=== PATIENT | female | born 1990 | race Caucasian/White ===

== ENCOUNTER 2017-03-01 20:18 | Emergency (ER) | payer SELFPAY ==
[~2017-03-01] VITALS: Ht 172.7 cm; Wt 93.8 kg
[~2017-03-01 20:18] MED LIST: AMOX875T PO; CARI350T28 PO; IBUP-1277 PO; OXYC-609 PO; RTL20 PO
[2017-03-01 20:26] VITALS: TEMP 36.7; Ht 172.7 cm; Wt 93.8 kg
[2017-03-01] MEDS ORDERED: PROMETHAZINE HCL INJ 25 MG/ML 1 ML VIAL IM STA (20:43)
[2017-03-01] MEDS ORDERED: KETOROLAC TROMETHAMINE 60 MG/2 ML VIAL IM STA (20:43)
[2017-03-01] MEDS ORDERED: HYDROmorphone INJ 2 MG/ML SYR/VIAL IM STA (20:43)
--- NOTE | 2017-03-01 20:50 | EMERGENCY ROOM VISIT NOTE ---
History Report prepared by Caty: Luis Felipe Whaley Under the Supervision of: Dr. Matt Stanley M.D. First contact with patient: 20:37 Chief Complaint: NECK PAIN Stated Complaint: SEVERE ACUTE NECK,SHOULDER,BACK PAIN History of Present Illness The patient is a 26 year old female who presents to the Emergency Room with complaints of persistent neck pain that started 3 days ago. The patient has been stretching and applying heat and ice, but the discomfort has only been getting worse. The discomfort has started to radiate down her spine and to her shoulders and she complains of tingling in her fingers. Moving her head significantly worsens the discomfort. She has been taking Ibuprofen for the discomfort and took a muscle relaxer 10 hours ago. She denies any trauma or headache at this time. Source of History: patient Onset: 3 days ago Position: neck Timing: other (persistent) Modifying Factors (Worsening): movement (of the head) Associated Symptoms: + headache Note: Other associated symptoms: tingling in her fingers, radiation down spine and to shoulders Denies: trauma Review of Systems See HPI for pertinent positives & negatives. A total of 10 systems reviewed and were otherwise negative. Past Medical & Surgical Medical Problems: (1) Asthma (2) Bronchitis (3) Bronchitis (4) Diarrhea (5) Fistulation of perianal abscess (6) Hemorrhoids (7) Irritable bowel syndrome (IBS) (8) Miscarriage (9) Perianal abscess (10) PNA (pneumonia) (11) Pneumonia (12) Pre-eclampsia, mild, third trimester (13) Tachycardia (14) Twin , antepartum Surgical Problems: (1) History of appendectomy (2) S/P appendectomy Family History FH: gallbladder disease FH: heart disease Hypertension Kidney disease Kidney stones Liver disease Social History Smoking Status: Former Smoker Alcohol Use: occasionally Drug Use: none Marital Status: Housing Status: lives with significant other Occupation Status: employed Current/Historical Medications Scheduled Pregabalin (Lyrica), 300 MG PO HS Scheduled PRN Carisoprodol (Soma), 350 MG PO TID PRN for Menstrual Cramps Oxycodone/Acetaminophen 5MG/325MG (Percocet 5MG/325MG), 1-2 TAB PO Q4H PRN for Pain Allergies Coded Allergies: Amitriptyline (Verified Allergy, Severe, SUICIDAL THOUGHTS/INSOMNIA, ) Morphine (Verified Allergy, Unknown, itching, ineffective pain relief, ) Physical Exam Vital Signs Date Time Temp Pulse Resp B/P Pulse Ox O2 Delivery O2 Flow Rate FiO2 03/01/17 22:49 87 16 110/53 97 03/01/17 21:53 81 20 90/53 98 Room Air 03/01/17 20:26 36.7 124 18 115/82 100 Room Air Physical Exam GENERAL: Patient is a healthy-appearing well-nourished HEAD: Normocephalic atraumatic EYES: Ocular movements intact pupils equal and react to light OROPHARYNX mucous membranes are moist no exudates present no erythema or edema present NECK: Supple no nuchal rigidity CHEST: Good equal expansion LUNGS: Clear and equal to auscultation CARDIAC: Normal S1 and S2 ABDOMEN: Soft nontender no guarding BACK: Latissimus dorsi is in spasm on exam, no midline tenderness, full range of motion of arms, no weakness, 5 out of 5 strength in bilateral arms and legs. EXTREMITIES: No pain upon palpation normal muscle strength in all groups no clubbing cyanosis or edema NEURO: Patient is following commands is answering questions appropriately. Alert and oriented x3 Cranial Nerves 2-12 grossly intact. No evidence of meningitis or encephalitis on exam. Medical Decision & Procedures ER Provider Diagnostic Interpretation: X-ray results as stated below per interpretation by me and the radiologist: C-SPINE ROUTINE 4 OR 5 VIEWS CLINICAL HISTORY: Neck pain. No known trauma. COMPARISON STUDY: No previous studies for comparison. FINDINGS: Visualization of the cervical spine is adequate. Alignment is anatomic. Vertebral body heights are maintained. Disc spaces are preserved. Facet joints are intact. Prevertebral soft tissues are unremarkable by radiography. IMPRESSION: Unremarkable cervical spine radiographs. Electronically signed by: Dell Larios M.D. 03/01/2017 9:45 PM Dictated Date/Time: 03/01/2017 9:44 PM Medications Administered Medications (Trade) Dose Ordered Sig/Judy Route Start Time Stop Time Status Last Admin Dose Admin Ketorolac Tromethamine (Toradol Inj) 60 mg NOW STAT IM 03/01/17 20:43 03/01/17 20:45 DC 03/01/17 20:57 60 MG Hydromorphone HCl (Dilaudid Inj) 2 mg NOW STAT IM 03/01/17 20:43 03/01/17 20:45 DC 03/01/17 20:57 2 MG Promethazine HCl (Phenergan Inj) 25 mg NOW STAT IM 03/01/17 20:43 03/01/17 20:45 DC 03/01/17 20:58 25 MG Oxycodone/ Acetaminophen (Percocet 5/ 325MG Home Pack) 1 homepack UD ONCE PO 03/01/17 22:30 03/01/17 22:31 DC 03/01/17 22:49 1 HOMEPACK ED Course 2036: Past medical records reviewed. The patient was evaluated in room C12. A complete history and physical examination was performed. 2042: Ordered Phenergan Inj 25 mg IM, Dilaudid Inj 2 mg IM, Toradol Inj 60 mg IM. 2229: Ordered Oxycodone/ Acetaminophen 1 homepack PO. 2241: Upon reexamination the patient is resting comfortably. I discussed results and treatment plan with the patient. She verbalizes agreement and understanding. The patient is ready for discharge. Medical Decision Differential diagnosis: Etiologies such as musculoskeletal, disc herniation, fracture, aortic disease, metastatic disease, cord compression, discitis, infection, renal colic, gastrointestinal, acute exacerbation of chronic back pain, sciatica, cauda equina, as well as others were entertained. Medication Reconciliation: I attest that I have personally reviewed the patient' s current medication list Blood Pressure Screening: Patient was found to have an elevated blood pressure and was referred to their primary care doctor for recheck and further treatment This is a 26-year-old female that presents emergency department complaining of severe neck pain. The patient denies a headache and I do not believe she has any evidence of meningitis encephalitis on examination. The patient's neck muscles do appear to be in spasm. For this reason she was given Toradol Dilaudid and Phenergan IM. Repeat examination revealed improvement patient's symptoms. X-rays of her neck do not show any evidence of acute process. I recommended follow-up with orthopedic spine as well as pain management. Patient was in agreement with the treatment plan. Impression Primary Impression: Neck pain Scribe Attestation The scribe's documentation has been prepared under my direction and personally reviewed by me in its entirety. I confirm that the note above accurately reflects all work, treatment, procedures, and medical decision making performed by me. Departure Information Dispostion Home / Self-Care Prescriptions Oxycodone/Acetaminophen 5MG/325MG (PERCOCET 5MG/325MG) Tab 1-2 TAB PO Q4H Y for Pain, #14 TAB Prov: Matt Stanley MD 03/01/17 Referrals William Abraham Jr,D.O. (PCP) Forms HOME CARE DOCUMENTATION FORM, IMPORTANT VISIT INFORMATION, WORK / SCHOOL INSTRUCTIONS Patient Instructions ED Neck Back Pain General, Exercises Neck Flex, My [facility] Exchange, Neck Cervical Spine Additional Instructions Follow up with DR Kim' office You were found to have an elevated blood pressure today (>120 sytolic or >90 diastolic). Per medicare guidelines, you need to follow up with this blood pressure screening with your Primary Care Physician (PCP). For a new PCP call [phone]. You received narcotic or benzodiazepene medication while in the emergency room today. Do not drive, operate heavy machinery, or drink alcohol under the influence of this medication. Take 600 mg Ibuprofen every 6 hours Take Flexeril as needed Take Percocet for breakthrough pain You have been examined and treated today on an emergency basis only. This is not a substitute for, or an effort to provide, complete comprehensive medical care. It is impossible to recognize and treat all injuries or illnesses in a single emergency department visit. It is therefore important that you follow up closely with Dr Abraham. Call as soon as possible for an appointment. Thank you for your time and consideration. I look forward to speaking with you again soon. Please don't hesitate to call us if you have any questions.
[2017-03-01] MEDS ORDERED: PREG1CAP34 PO (21:41)
--- NOTE | 2017-03-01 21:46 | DIAGNOSTIC IMAGING REPORT ---
C-SPINE ROUTINE 4 OR 5 VIEWS CLINICAL HISTORY: Neck pain. No known trauma. COMPARISON STUDY: No previous studies for comparison. FINDINGS: Visualization of the cervical spine is adequate. Alignment is anatomic. Vertebral body heights are maintained. Disc spaces are preserved. Facet joints are intact. Prevertebral soft tissues are unremarkable by radiography. IMPRESSION: Unremarkable cervical spine radiographs. Electronically signed by: Dell Larios M.D. 03/01/2017 9:45 PM Dictated Date/Time: 03/01/2017 9:44 PM
[2017-03-01] MEDS ORDERED: PERCOCET HOME PACK PO ONE (22:30)
[2017-03-01] MEDS ORDERED: OXYC-57 PO (22:38)
[2017-03-01 22:49] VITALS: BP 110/53; PULSE 87; O2SAT 97
[2017-05-21] MEDS ORDERED: OXYC1TAB3 PO (07:48)
[2017-05-21] MEDS ORDERED: AMOX875T PO (08:01)
== END 2017-03-01 22:51 | disposition home or self-care (01) ==
LOC: C.EDB 20:19 → C.EDC 22:51
DX: M54.2 Cervicalgia (principal); J45.909 Unspecified asthma, uncomplicated; Z87.59 Personal history of other complications of pregnancy, childbirth and the puerperium; Z87.01 Personal history of pneumonia (recurrent); Z87.891 Personal history of nicotine dependence; Z90.89 Acquired absence of other organs; Z82.49 Family history of ischemic heart disease and other diseases of the circulatory system; Z84.1 Family history of disorders of kidney and ureter

== ENCOUNTER 2017-03-24 12:39 | Emergency (ER) | payer SELFPAY ==
[~2017-03-24] VITALS: Ht 172.7 cm; Wt 96.2 kg
[~2017-03-24 12:39] MED LIST changes: -AMOX875T PO; -IBUP-1277 PO; +OXYC-57 PO; -OXYC-609 PO; +PREG1CAP34 PO; -RTL20 PO
[2017-03-24 12:55] VITALS: TEMP 36.8; Ht 172.7 cm; Wt 96.2 kg
[2017-03-24] MEDS ORDERED: IBUP-1050 PO (13:11)
[2017-03-24] MEDS ORDERED: KETOROLAC TROMETHAMINE 30 MG/ML VIAL IV STA (13:49)
[2017-03-24] MEDS ORDERED: SODIUM CHLORIDE 0.9% 1000ML 1,000 ML IV STA (13:49)
[2017-03-24] MEDS ORDERED: AMPICILLIN/SULBACTAM SOD INJ 3,000 MG in SODIUM CHLORIDE 0.9% 100ML 100 ML IV ONE (14:00)
[2017-03-24 14:15] LABS: BASO % 0.3 %; BASO ABS # 0.02 K/uL (0-0.2); COMPLETE YES; EOS % 2.7 %; HEMATOCRIT 41.1 % (37-47); IG% 0.3 %; LYMPH ABS # 1.93 K/uL (1.2-3.4); MEAN CELL VOLUME 93.8 fL (80-100); MEAN CORPUSCULAR HEMOGLOBIN 31.5 pg (25-34); MEAN CORPUSCULAR HGB CONC 33.6 g/dl (32-36); MEAN PLATELET VOLUME 10.4 fL (7.4-10.4); MONO % 10.8 %; NEUT % 58.9 %; PLATELET COUNT 207 K/uL (130-400); RED BLOOD COUNT 4.38 M/uL (4.2-5.4); WHITE BLOOD COUNT 7.14 K/uL (4.8-10.8)
[2017-03-24 14:27] LABS: URINE APPEARANCE CLEAR (CLEAR); URINE BILIRUBIN NEG (NEG); URINE COLOR DK YELLOW; URINE EPITHELIAL CELL AUTO >30 /lpf (0-5); URINE NITRITE NEG (NEG); URINE PH 5.5 (4.5-7.5); URINE SPECIFIC GRAVITY 1.025 (1.000-1.030); UROBILINOGEN NEG (NEG)
[2017-03-24 14:29] LABS: MANUAL MICROSCOPIC REQUIRED? NO; REVIEW REQ? NO
[2017-03-24 14:37] LABS: BUN/CREATININE RATIO 18.5 (10-20); CALCIUM 8.3 mg/dl (8.5-10.1); CREATININE 0.73 mg/dl (0.60-1.20); POTASSIUM 3.8 mmol/L (3.5-5.1)
[2017-03-24] MEDS ORDERED: CEPH500C PO (15:41)
--- NOTE | 2017-03-24 15:43 | EMERGENCY ROOM VISIT NOTE ---
ED Visit Note First contact with patient: 13:26 CHIEF COMPLAINT: Infection of the right buttock HISTORY OF PRESENT ILLNESS: This 26-year-old female patient presents to the emergency department complaining of redness and pain on her right buttock for the past 5 days. The area has become red, warm, and very painful. The patient denies fever, chills, nausea, or loss of appetite. Movement of the right buttock is mildly decreased because of the pain, and patient also reports pain with sitting directly on the area. The patient's tetanus shot is up to date. REVIEW OF SYSTEMS: A review of systems was performed with positives and pertinent negatives listed in the history of present illness. All other systems were reviewed and are negative. ALLERGIES: See chart MEDICATIONS: See chart PMH: See chart SOCIAL HISTORY: See chart PHYSICAL EXAM: Vital Signs: Reviewed Nurse's notes, Temperature afebrile, vital signs stable. GENERAL: Pleasant and cooperative, in no acute distress, is non toxic in appearance, well-developed, well-nourished. SKIN: The skin overlying the right buttock is red, warm, very tender, and swollen. There is small amount of peeling skin at the center of the erythema, no blistering, no drainage, no fluctuance to suggest abscess formation. There is no lymphangitic streaking. There is no discharge. There is no fluctuance. There is induration. HEART: Regular rate and rhythm without murmur, gallop, or rub. LUNGS: Clear to auscultation bilaterally without wheezes, rales, or rhonchi. NEURO: Alert and oriented to person, place, and time. Normal sensation to light and sharp touch. Capillary reflex less than 2 seconds. Peripheral pulses 2 + bilaterally. EMERGENCY DEPARTMENT COURSE: I examined the patient. There is no palpable area of fluctuance to suggest abscess. Bedside ultrasound was done to further examine for abscess, cobblestone pattern noted, consistent with cellulitis, but no drainable fluid collection was noted with ultrasound. Labs were drawn, which are unremarkable, no leukocytosis, no anemia, normal electrolytes and renal function. Patient given IV fluid bolus and IV dose of Unasyn, as well as Toradol to treat pain. Patient much improved after treatment. Given she is well appearing, with no leukocytosis, no fevers, and improved after treatment, I feel the patient can be safely discharged home with additional antibiotic coverage for broader gram positives. Patient was placed on doxycycline for three weeks, suggesting her PCP was concerned for possible Lyme disease, however patient states she has not had positive blood testing for this, and the area on her right buttock does appear more consistent with a cellulitis. I instructed the patient to continue the doxy as prescribed and to follow up with her PCP. Will add Keflex for additional coverage. Patient verbalized understanding and was comfortable with plan and discharge. Pt stable at time of discharge and ambulatory. Patient was discussed with Dr. Eid, who agreed with my assessment and plan. Problem List Medical Problems: (1) Asthma Status: Chronic (2) Bronchitis Status: Resolved (3) Bronchitis Status: Resolved (4) Fistulation of perianal abscess Status: Chronic (5) Hemorrhoids Status: Resolved (6) Irritable bowel syndrome (IBS) Status: Chronic (7) Miscarriage Status: Resolved (8) Perianal abscess Status: Resolved (9) PNA (pneumonia) Status: Resolved (10) Pneumonia Status: Resolved (11) Pre-eclampsia, mild, third trimester Status: Resolved (12) Tachycardia Status: Resolved (13) Twin , antepartum Status: Resolved Surgical Problems: (1) History of appendectomy Status: Resolved (2) S/P appendectomy Status: Resolved Current/Historical Medications Scheduled Cephalexin Monohydrate (Keflex), 500 MG PO QID Ibuprofen (Advil), 400 MG PO DAILY Pregabalin (Lyrica), 300 MG PO HS Scheduled PRN Carisoprodol (Soma), 350 MG PO TID PRN for Menstrual Cramps Allergies Coded Allergies: Amitriptyline (Verified Allergy, Severe, SUICIDAL THOUGHTS/INSOMNIA, ) Morphine (Verified Allergy, Unknown, itching, ineffective pain relief, ) Vital Signs Date Time Temp Pulse Resp B/P (MAP) Pulse Ox O2 Delivery O2 Flow Rate FiO2 03/24/17 15:59 78 18 113/64 100 03/24/17 14:24 72 16 105/54 98 03/24/17 12:55 36.8 95 18 121/67 100 Room Air Laboratory Results 03/24/17 14:05 Red Blood Count 4.38, Mean Corpuscular Volume 93.8, Mean Corpuscular Hemoglobin 31.5, Mean Corpuscular Hemoglobin Concent 33.6, Mean Platelet Volume 10.4, Neutrophils (%) (Auto) 58.9, Lymphocytes (%) (Auto) 27.0, Monocytes (%) (Auto) 10.8, Eosinophils (%) (Auto) 2.7, Basophils (%) (Auto) 0.3, Neutrophils # (Auto ) 4.21, Lymphocytes # (Auto) 1.93, Monocytes # (Auto) 0.77, Eosinophils # (Auto ) 0.19, Basophils # (Auto) 0.02 03/24/17 14:05 Test 03/24/17 13:49 03/24/17 14:00 03/24/17 14:05 Urine Color DK YELLOW Urine Appearance CLEAR (CLEAR) Urine pH 5.5 (4.5-7.5) Urine Specific [place] 1.025 (1.000-1.030) Urine Protein NEG (NEG) Urine Glucose (UA) NEG (NEG) Urine Ketones TRACE (NEG) Urine Occult Blood TRACE (NEG) Urine Nitrite NEG (NEG) Urine Bilirubin NEG (NEG) Urine Urobilinogen NEG (NEG) Urine Leukocyte Esterase NEG (NEG) Urine WBC (Auto) 1-5 /hpf (0-5) Urine RBC (Auto) 0-4 /hpf (0-4) Urine Hyaline Casts (Auto) 5-10 /lpf (0-5) Urine Epithelial Cells (Auto) >30 /lpf (0-5) Urine Bacteria (Auto) 1+ (NEG) White Blood Count 7.14 K/uL (4.8-10.8) Red Blood Count 4.38 M/uL (4.2-5.4) Hemoglobin 13.8 g/dL (12.0-16.0) Hematocrit 41.1 % (37-47) Mean Corpuscular Volume 93.8 fL (80-100) Mean Corpuscular Hemoglobin 31.5 pg (25-34) Mean Corpuscular Hemoglobin Concent 33.6 g/dl (32-36) Platelet Count 207 K/uL (130-400) Mean Platelet Volume 10.4 fL (7.4-10.4) Neutrophils (%) (Auto) 58.9 % Lymphocytes (%) (Auto) 27.0 % Monocytes (%) (Auto) 10.8 % Eosinophils (%) (Auto) 2.7 % Basophils (%) (Auto) 0.3 % Neutrophils # (Auto) 4.21 K/uL (1.4-6.5) Lymphocytes # (Auto) 1.93 K/uL (1.2-3.4) Monocytes # (Auto) 0.77 K/uL (0.11-0.59) Eosinophils # (Auto) 0.19 K/uL (0-0.5) Basophils # (Auto) 0.02 K/uL (0-0.2) RDW Standard Deviation 45.2 fL (36.4-46.3) RDW Coefficient of Variation 13.1 % (11.5-14.5) Immature Granulocyte % (Auto) 0.3 % Immature Granulocyte # (Auto) 0.02 K/uL (0.00-0.02) Anion Gap 5.0 mmol/L (3-11) Est Creatinine Clear Calc Drug Dose 140.4 ml/min Estimated GFR () 130.8 Estimated GFR (Non- 112.9 BUN/Creatinine Ratio 18.5 (10-20) Calcium Level 8.3 mg/dl (8.5-10.1) Medications Administered Medications (Trade) Dose Ordered Sig/Judy Route Start Time Stop Time Status Last Admin Dose Admin Ampicillin Sodium/ Sulbactam Sodium 3000 mg/Sodium Chloride 108 ml @ 200 mls/hr ONE ONCE IV 03/24/17 14:00 03/24/17 14:32 DC 03/24/17 14:22 200 MLS/HR Ketorolac Tromethamine (Toradol Inj) 15 mg NOW STAT IV 03/24/17 13:49 03/24/17 13:52 DC 03/24/17 14:07 15 MG Sodium Chloride 1,000 ml @ 999 mls/hr Q1H1M STAT IV 03/24/17 13:49 03/24/17 14:49 DC 03/24/17 14:07 999 MLS/HR Departure Information Impression Primary Impression: Cellulitis of buttock, right Dispostion Home / Self-Care Condition GOOD Prescriptions Cephalexin Monohydrate (Keflex) 500 Mg Cap 500 MG PO QID for 7 Days, #28 CAP Prov: Isadora Hu CRNP 03/24/17 Referrals William Abraham Jr,D.O. (PCP) Patient Instructions My [facility] Additional Instructions You were seen in the Emergency Department for cellulitis. Continue taking the doxycycline for the full course as prescribed. In addition, you have been prescribed Keflex to be taken 4 times a day for 7 days. Both of these medications are antibiotics. Stop these medications and contact a medical provider if you were to develop any significant adverse side effects including: wheezing, shortness of breath, passing out, vomiting, or a diffuse rash. Always take antibiotics as directed and COMPLETE the ENTIRE course regardless of the improvement of your symptoms. Look for signs of worsening infection of the wound including: increased pain, swelling, foul discharge, streaking, or fevers/chills/feeling ill. If any of these are noticed you should return to the Emergency Department for further assessment and treatment. For pain control, you can use the following [id number] medicines (if >12 yo): - Extra strength (500mg/tab) Tylenol (acetaminophen) 1-2 tabs every 6-8 hours as needed. Do not exceed 6 tablets in a 24 hour period. Avoid taking more than 3 grams (3000 mg) of Tylenol per day. This includes any other sources of acetaminophen you may take on a regular basis. - Regular strength (200 mg/tab) Advil (ibuprofen) 1-2 tabs every 4-6 hours as needed. Do not exceed a dose of 3200 mg per day. Apply warm compresses to the area to help with pain and also to help improve the infection. Follow up with your PCP in 2 days for recheck, or sooner for worsening symptoms. Return to the emergency department if your symptoms worsen despite treatment course outlined above.
[2017-03-24 15:59] VITALS: BP 113/64; PULSE 78; O2SAT 100
[2017-05-21] MEDS ORDERED: OXYC1TAB3 PO (07:48)
[2017-05-21] MEDS ORDERED: AMOX875T PO (08:01)
== END 2017-03-24 16:00 | disposition home or self-care (01) ==
LOC: C.EDB 12:41 → C.EDD 16:00
DX: L03.317 Cellulitis of buttock (principal); J45.909 Unspecified asthma, uncomplicated; K58.9 Irritable bowel syndrome, unspecified; Z79.899 Other long term (current) drug therapy

== ENCOUNTER 2017-05-13 11:41 | Emergency (ER) | payer SELFPAY ==
[~2017-05-13] VITALS: Ht 172.7 cm; Wt 92.6 kg
[~2017-05-13 11:41] MED LIST changes: +IBUP-1050 PO; -OXYC-57 PO
[2017-05-13 11:52] VITALS: TEMP 37.2; Ht 172.7 cm; Wt 92.6 kg
[2017-05-13] MEDS ORDERED: SERT-234 PO (12:14)
[2017-05-13] MEDS ORDERED: PREG100C PO (12:14)
[2017-05-13] MEDS ORDERED: CEFAZOLIN SOD 1000MG/55 ML D5W IV STA (12:21)
[2017-05-13] MEDS ORDERED: FENTANYL CITRATE INJ 50 MCG/1 ML 2 ML VIAL IV STA (12:21)
[2017-05-13] MEDS ORDERED: ONDANSETRON INJ 2 MG/ML 2 ML VIAL IV STA (12:21)
--- NOTE | 2017-05-13 12:58 | EMERGENCY ROOM VISIT NOTE ---
History Report prepared by Caty: Bernadine Coronado Under the Supervision of: Dr. Papi Lindsey M.D. First contact with patient: 12:13 Chief Complaint: WOUND INFECTION Stated Complaint: PAINFUL LUMP IN ARMPIT Nursing Triage Summary: Patient has lump under right armpit that started on Wednesday. On Wednesday it started as a small lump that was the size of the pea. Patient was unable to sleep last night due to the pain in this area. Today patient noticed that the lump has grown in size. No drainage noted. History of cysts in breast and armpit area. No injury to area. Lump is closed with redness with some swelling noted. Patient had chills last night and today, unsure if she had fever. Last had perianal abcess in February 2015. History of Present Illness The patient is a 26 year old female who presents to the Emergency Room with complaints of a worsening infection of the right axilla for the past two days. She noticed an area about the size of a pea two days ago that was painful. Today she states that it is about the size of a golf ball. The area is red and painful and the pain is radiating into her right breast. The patient rates her pain as a 7/10 in severity. Movement of the arm exacerbates her pain. The patient denies fever and vomiting. She has a history of abscesses and states that they started occurring when she was . She thinks that they are related to hormones because they seem to coincide with her menstrual cycle. Source of History: patient Onset: 2 days ago Position: other (right axilla) Symptom Intensity: 7/10 Quality: other (infection) Timing: worsening Modifying Factors (Worsening): movement (of arm) Associated Symptoms: No fevers, No vomiting Review of Systems See HPI for pertinent positives & negatives. A total of 10 systems reviewed and were otherwise negative. Past Medical & Surgical Medical Problems: (1) Asthma (2) Bronchitis (3) Bronchitis (4) Diarrhea (5) Fistulation of perianal abscess (6) Hemorrhoids (7) Irritable bowel syndrome (IBS) (8) Miscarriage (9) Perianal abscess (10) PNA (pneumonia) (11) Pneumonia (12) Pre-eclampsia, mild, third trimester (13) Tachycardia (14) Twin , antepartum Surgical Problems: (1) History of appendectomy (2) S/P appendectomy Family History FH: gallbladder disease FH: heart disease Hypertension Kidney disease Kidney stones Liver disease Social History Smoking Status: Former Smoker Alcohol Use: occasionally Drug Use: none Marital Status: Housing Status: lives with significant other Occupation Status: employed Current/Historical Medications Scheduled Cephalexin Monohydrate (Keflex), 500 MG PO QID Pregabalin (Lyrica), 500 MG PO HS Sertraline (Zoloft), 100 MG PO QPM Scheduled PRN Carisoprodol (Soma), 350 MG PO TID PRN for Menstrual Cramps Allergies Coded Allergies: Amitriptyline (Verified Allergy, Severe, SUICIDAL THOUGHTS/INSOMNIA, ) Morphine (Verified Allergy, Unknown, itching, ineffective pain relief, ) Physical Exam Vital Signs Date Time Temp Pulse Resp B/P (MAP) Pulse Ox O2 Delivery O2 Flow Rate FiO2 05/13/17 15:18 66 18 104/52 99 05/13/17 13:59 72 18 109/54 96 Room Air 05/13/17 11:52 37.2 92 20 120/68 97 Room Air Physical Exam Constitutional: Vital signs reviewed. Eyes: Pupils are equal round reactive to light. Conjunctiva are noninjected. ENT: Pharynx is clear without erythema or exudate. Mucous membranes are moist. Neck supple without meningeal signs. Respiratory: Clear to auscultation bilaterally. Breath sounds are equal bilaterally. Cardiovascular: Regular rate and rhythm. No rubs or gallops. Breast: No obvious abnormal findings, no nipple discharge. GI: Soft, nondistended and nontender. Bowel sounds are present. Musculoskeletal: She has tenderness and swelling to right axilla with induration and slight erythema. No peripheral edema. Integumentary: No cyanosis. Neurological: The patient is awake and alert. No focal deficits. Psychiatric: Normal affect. Medical Decision & Procedures ER Provider Diagnostic Interpretation: Radiology results as stated below per my review and the radiologist's interpretation: RIGHT AXILLARY ULTRASOUND CLINICAL HISTORY: Right axilla swelling COMPARISON STUDY: No previous studies for comparison. FINDINGS: There is a hypervascular subcutaneous heterogeneous hypoechoic focus corresponding to the palpable nodule. This measures 12 x 11 x 6 mm. The appearance is nonspecific and clinical follow-up is advocated. IMPRESSION: The palpable abnormality corresponds to a nonspecific hypervascular subcutaneous lesion measuring 12 x 11 x 6 mm. Close clinical follow-up is advocated Electronically signed by: Jase Gould M.D. 05/13/2017 1:55 PM Dictated Date/Time: 05/13/2017 1:53 PM Laboratory Results 05/13/17 12:45 Red Blood Count 4.13, Mean Corpuscular Volume 91.8, Mean Corpuscular Hemoglobin 32.0, Mean Corpuscular Hemoglobin Concent 34.8, Mean Platelet Volume 10.8, Neutrophils (%) (Auto) 69.1, Lymphocytes (%) (Auto) 20.2, Monocytes (%) (Auto) 8.1, Eosinophils (%) (Auto) 2.2, Basophils (%) (Auto) 0.1, Neutrophils # (Auto) 5.00, Lymphocytes # (Auto) 1.46, Monocytes # (Auto) 0.59, Eosinophils # (Auto) 0.16, Basophils # (Auto) 0.01 05/13/17 12:45 Test 05/13/17 12:45 White Blood Count 7.24 K/uL (4.8-10.8) Red Blood Count 4.13 M/uL (4.2-5.4) Hemoglobin 13.2 g/dL (12.0-16.0) Hematocrit 37.9 % (37-47) Mean Corpuscular Volume 91.8 fL (80-100) Mean Corpuscular Hemoglobin 32.0 pg (25-34) Mean Corpuscular Hemoglobin Concent 34.8 g/dl (32-36) Platelet Count 179 K/uL (130-400) Mean Platelet Volume 10.8 fL (7.4-10.4) Neutrophils (%) (Auto) 69.1 % Lymphocytes (%) (Auto) 20.2 % Monocytes (%) (Auto) 8.1 % Eosinophils (%) (Auto) 2.2 % Basophils (%) (Auto) 0.1 % Neutrophils # (Auto) 5.00 K/uL (1.4-6.5) Lymphocytes # (Auto) 1.46 K/uL (1.2-3.4) Monocytes # (Auto) 0.59 K/uL (0.11-0.59) Eosinophils # (Auto) 0.16 K/uL (0-0.5) Basophils # (Auto) 0.01 K/uL (0-0.2) RDW Standard Deviation 44.2 fL (36.4-46.3) RDW Coefficient of Variation 13.2 % (11.5-14.5) Immature Granulocyte % (Auto) 0.3 % Immature Granulocyte # (Auto) 0.02 K/uL (0.00-0.02) Anion Gap 7.0 mmol/L (3-11) Est Creatinine Clear Calc Drug Dose 132.3 ml/min Estimated GFR () 124.6 Estimated GFR (Non- 107.5 BUN/Creatinine Ratio 9.2 (10-20) Calcium Level 9.0 mg/dl (8.5-10.1) Chemistry Specimen Hemolysis Laboratory results as reviewed by me. Medications Administered Medications (Trade) Dose Ordered Sig/Judy Route Start Time Stop Time Status Last Admin Dose Admin Fentanyl Citrate (Fentanyl Inj) 50 mcg NOW STAT IV 05/13/17 12:21 05/13/17 12:24 DC 05/13/17 12:47 50 MCG Ondansetron HCl (Zofran Inj) 4 mg NOW STAT IV 05/13/17 12:21 05/13/17 12:24 DC 05/13/17 12:47 4 MG Cefazolin Sodium (Ancef 1000mg/55 ml D5W) 1,000 mg NOW STAT IV 05/13/17 12:21 05/13/17 12:24 DC 05/13/17 12:46 1,000 MG Oxycodone HCl (Roxicodone Immediate Rel Tab) 5 mg NOW STAT PO 05/13/17 14:18 05/13/17 14:19 DC 05/13/17 14:33 5 MG ED Course 1213: The patient was evaluated in room A2. A complete history and physical exam was performed. 1221: Cefazolin Sodium 1000 mg IV, Zofran 4 mg IV, Fentanyl Citrate 50 mcg IV 1413: I updated the patient on her results. I performed a breast exam at this time. Please see the physical examination for my findings. The patient states that she has "polycystic breasts." 1418: Oxycodone HCl 5 mg PO 1426: I discussed the patient with the case loader operator and they are going to work on referral for surgery. 1451: The patient has an appointment with Dr. Beaver tomorrow morning for follow-up. I discussed the results and treatment plan with the patient. I answered all pertaining questions that she had. She expressed understanding and verbalized agreement. The patient will be discharged home. Medical Decision This is a 26-year-old female who presents with pain to her right axilla. Differential diagnosis includes lymphadenopathy, abscess, MRSA, cellulitis, breast mass. I did perform a limited focused review of portions of the patient' s old chart on the electronic medical record. The patient was here March 24 for infection to the right buttock. She was discharged on Keflex. I did evaluate the patient as noted above. The patient has a tender mass to her right axilla. She denies having any breast pain or masses. She does state that she has multiple cysts to her breasts. Her right breast exam here was unremarkable. Her axillary mass did not feel fluctuant and so I was concerned that this may not be an abscess. I did recommend we image the mass rather than perform I&D despite her history of multiple abscesses. IV access was established. I did order blood cultures. I did treat the patient with IV fentanyl and Ancef IV. She was also given Zofran IV. I did order and review the patient's blood work as noted in the electronic medical record. Her white blood cell count is not elevated. I did order a limited ultrasound of the right axilla. I did review the images myself as well as the radiology report as described above. No fluid collection was noted. There was a hypervascular nonspecific mass in the right axilla. I did reassess patient. She was having continued pain and so she was given additional pain medication. She is given oxycodone. I did discuss the test results with her in detail. I did recommend close follow up with general surgery for further evaluation. An appointment was made with Dr. Beaver tomorrow at 11:30. The patient was discharged home with a prescription for Keflex. She did ask about pain medication but I did note in the pediatric unit she had received 90 oxycodones 3 days ago. It was recommended that she continue using these as needed. [place] Drug Monitoring Program Search Results: patient reviewed within database Drug Monitoring Findings: She received 90 oxycodone tablets on May 10. Medication Reconcilliation Current Medication List: was personally reviewed by me Blood Pressure Screening Patient's blood pressure: Normal blood pressure Impression Primary Impression: Mass of right axilla Additional Impression: Cellulitis Scribe Attestation The scribe's documentation has been prepared under my direct and personally reviewed by me in its entirety. I confirm that the note above accurately reflects all work, treatment, procedures, and medical decision making performed by me. Departure Information Dispostion Home / Self-Care Prescriptions Cephalexin Monohydrate (Keflex) 500 Mg Cap 500 MG PO QID, #28 CAP Prov: Papi Lindsey M.D. 05/13/17 Referrals William Abraham Jr,D.O. (PCP) Forms HOME CARE DOCUMENTATION FORM, IMPORTANT VISIT INFORMATION, WORK / SCHOOL INSTRUCTIONS Patient Instructions My [facility] Additional Instructions You have been examined and treated today on an emergency basis only. This is not a substitute for, or an effort to provide, complete comprehensive medical care. It is impossible to recognize and treat all injuries or illnesses in a single emergency department visit. It is therefore important that you follow up closely with Dr. Beaver tomorrow at 11:30AM. Return for worsening symptoms or if you develop fever, vomiting, chest pain, shortness of breath or any other concerning symptoms. Problem Qualifiers Additional Impression: Cellulitis Site of cellulitis: extremity Site of cellulitis of extremity: axilla Laterality: right Qualified Codes: L03.111 - Cellulitis of right axilla
[2017-05-13 13:38] LABS: BASO % 0.1 %; BASO ABS # 0.01 K/uL (0-0.2); COMPLETE YES; EOS % 2.2 %; HEMATOCRIT 37.9 % (37-47); IG% 0.3 %; LYMPH % 20.2 %; LYMPH ABS # 1.46 K/uL (1.2-3.4); MEAN CELL VOLUME 91.8 fL (80-100); MEAN CORPUSCULAR HGB CONC 34.8 g/dl (32-36); MEAN PLATELET VOLUME 10.8 fL (7.4-10.4); MONO % 8.1 %; NEUT % 69.1 %; PLATELET COUNT 179 K/uL (130-400); RED BLOOD COUNT 4.13 M/uL (4.2-5.4); WHITE BLOOD COUNT 7.24 K/uL (4.8-10.8)
[2017-05-13 13:55] LABS: BUN/CREATININE RATIO 9.2 (10-20); CREATININE 0.76 mg/dl (0.60-1.20); POTASSIUM 3.9 mmol/L (3.5-5.1)
--- NOTE | 2017-05-13 13:56 | DIAGNOSTIC IMAGING REPORT ---
RIGHT AXILLARY ULTRASOUND CLINICAL HISTORY: Right axilla swelling COMPARISON STUDY: No previous studies for comparison. FINDINGS: There is a hypervascular subcutaneous heterogeneous hypoechoic focus corresponding to the palpable nodule. This measures 12 x 11 x 6 mm. The appearance is nonspecific and clinical follow-up is advocated. IMPRESSION: The palpable abnormality corresponds to a nonspecific hypervascular subcutaneous lesion measuring 12 x 11 x 6 mm. Close clinical follow-up is advocated Electronically signed by: Jase Gould M.D. 05/13/2017 1:55 PM Dictated Date/Time: 05/13/2017 1:53 PM
[2017-05-13] MEDS ORDERED: OXYCODONE HCL IR 5 MG TAB (IMMEDIATE RELEASE) PO STA (14:18)
[2017-05-13] MEDS ORDERED: CEPH500C PO (15:02)
[2017-05-13 15:18] VITALS: BP 104/52; PULSE 66; O2SAT 99
[2017-05-21] MEDS ORDERED: OXYC1TAB3 PO (07:48)
[2017-05-21] MEDS ORDERED: AMOX875T PO (08:01)
== END 2017-05-13 15:18 | disposition home or self-care (01) ==
LOC: C.EDB 11:42 → C.EDA 15:18
DX: R22.2 Localized swelling, mass and lump, trunk (principal); L03.90 Cellulitis, unspecified; J45.909 Unspecified asthma, uncomplicated; K58.9 Irritable bowel syndrome, unspecified; Z87.891 Personal history of nicotine dependence; Z79.899 Other long term (current) drug therapy; Z98.890 Other specified postprocedural states; Z88.5 Allergy status to narcotic agent; Z88.8 Allergy status to other drugs, medicaments and biological substances; Z83.79 Family history of other diseases of the digestive system; Z82.49 Family history of ischemic heart disease and other diseases of the circulatory system; Z84.1 Family history of disorders of kidney and ureter

== ENCOUNTER → 2017-05-21 | Day surgery (SDC) | payer SELFPAY ==
[2017-05-18 14:36] VITALS: Ht 172.7 cm; Wt 90.0 kg
[~2017-05-21] VITALS: Ht 172.7 cm; Wt 90.0 kg
[~2017-05-21] MED LIST changes: +AMOX875T PO; +ATROPINE SULFATE 0.1 MG/ML 5ML SYR IV PRN; +BUPIVACAINE 0.5 % 5 MG/1 ML MPF 30ML VIAL ONE; +CEFAZOLIN 2000 MG/60 ML D5W IV SCH; +CEPH500C PO; +DEXAMETHASONE SOD INJ 4 MG/ML VIAL ONE; +EpHEDrine SULFATE INJ 50 MG/ML AMP IV PRN; +FENTANYL CITRATE INJ 50 MCG/1 ML 2 ML VIAL ONE; -IBUP-1050 PO; +LACTATED RINGER'S 1000ML 1,000 ML IV SCH; +LIDOCAINE HCL 1% 20 ML VIAL ONE; +LIDOCAINE HCL 2% 2 ML VIAL (20MG/ML) ONE; +MIDAZOLAM HCL 1 MG/ML 2ML VIAL ONE; +ONDANSETRON INJ 2 MG/ML 2 ML VIAL IV PRN; +ONDANSETRON INJ 2 MG/ML 2 ML VIAL ONE; +OXYC1TAB3 PO; +OXYCODONE HCL IR 5 MG TAB (IMMEDIATE RELEASE) PO PRN; +OXYCODONE/ACETAMINOPHEN 5-325 TAB PO PRN; +PREG100C PO; -PREG1CAP34 PO; +PROPOFOL IV EMULSION 10 MG/ML 20 ML VIAL IV ONE; +SCOPOLAMINE 1.5 MG TDSY TD ONE; +SERT-234 PO; +SODIUM CHLORIDE 0.9% 1000ML 1,000 ML IV SCH
--- NOTE | 2017-05-21 06:49 | History & Physical Bridge - SC ---
H&P Re-Evaluation Bridge Note: I have examined the patient, reviewed the History & Physical and in the interval since the performance of the History & Physical I have noted the following changes of clinical significance: No changes noted
--- NOTE | 2017-05-21 07:41 | [facility] Operative Report ---
Operative Report Operative Date May 21, 2017. Pre-Operative Diagnosis Right Axillary Mass Post-Operative Diagnosis Rt axillary abscess Procedure(s) Performed Right Incision & Drainage of Axillary Abcess Surgeon Dr. Sesay Head Grease Maker Surgeon(s) Elisa Bonilla PA-C Estimated Blood Loss 1 ml Findings 3-4 cm deep Rt axillary abscess cultured Specimens A.) Right Axillary Abcess Culture (Aerobic, Anaerobic, Gram Stain) Drains 1/4in oliva into cavity Anesthesia gen/LMA Complication(s) None Disposition Recovery Room / PACU I attest to the content of the Intraoperative Record and any orders documented therein. Any exceptions are noted below.
[2017-05-21] MEDS: FENTANYL CITRATE INJ 50 MCG/1 ML 2 ML VIAL IV PRN ×2 (07:50→08:15)
--- NOTE | 2017-05-21 07:51 | Discharge Instructions-SurgCtr ---
Discharge Instructions Date of Service May 21, 2017. Visit Reason for Visit: Right Axillary Mass Discharge Discharge Diagnosis / Problem: Rt axillary abscess Discharge Goals Goal(s): Decrease discomfort, Improve function, Improve disease control Activity Recommendations Activity Limitations: as noted below Lifting Limitations: no more than 10 pounds Exercise/Sports Limitations: until after follow-up appointment May Resume Sexual Activity: when tolerated Shower/Bathe: tomorrow Driving or Machine Use: resume 1 day after discharge SPECIAL CARE INSTRUCTIONS: * Cover incisions and change daily for comfort/drainage. Expect drainage- drain in place * Change twice daily * * May use ibuprofen for pain as tolerated. * Expect some swelling and bruising. Call your doctor if: * Temperature above 101 degrees * Pain not relieved by pain medicine ordered * There is increased drainage or redness from any incision * You have any unanswered questions or concerns [phone]. FOLLOW UP VISIT: If not already scheduled, please call the office for a follow-up visit. for next week- wound check and drain check OFFICE PHONE NUMBER: Dr. Sesay Office Anesthesia . Post Anesthesia Instructions: If you have had General Anesthesia or IV Sedation: * Do not drive today. * Resume driving when surgeon permits. * Do not make important decisions or sign legal documents today. * Call surgeon for: 1. Temperature elevations greater than 101 degrees F. 2. Uncontrollable pain. 3. Excessive bleeding. 4. Persistent nausea and vomiting. 5. Medication intolerance (nausea, vomiting or rash). * For nausea and vomiting use only clear liquids such as: tea, soda, bouillon until nausea subsides, then gradually increase diet as tolerated. * If you have any concerns or questions, call your surgeon's office. If physician is unavailable and it is an emergency, call 911 or go to the nearest emergency room. . Diet Recommendations Home Diet: resume previous diet Procedures Procedures Performed: Right Incision & Drainage of Axillary Abcess Pending Studies Studies pending at discharge: no Medical Emergencies . Who to Call and When: Medical Emergencies: If at any time you feel your situation is an emergency, please call 911 immediately. . Non-Emergent Contact Non-Emergency issues call your: Primary Care Provider, Surgeon . . "Provider Documentation" section prepared by William Sesay. .
[2017-05-21 08:52] VITALS: TEMP 36.4
--- NOTE | 2017-05-21 09:12 | OPERATIVE REPORT ---
DATE OF OPERATION: 05/21/2017 NAME OF OPERATION: Incision and drainage of right axillary abscess. PREOPERATIVE DIAGNOSIS: Right axillary mass. POSTOPERATIVE DIAGNOSIS: Right axillary abscess. STAFF SURGEON: Dr. Sesay. RINK RAT: Abbey Tobar PA-C ANESTHESIA: General LMA. PROCEDURE: The patient was brought in the operating room and placed on the operating table in supine position. Her right arm was extended on an arm board. Her right axilla was prepped and draped in usual fashion. She had a 3-4 cm palpable mass in the right axilla which had increased significantly in size over 1 week and I was concerned that it could either be an infection or lymphadenopathy. 0.5% plain Marcaine was used to anesthetize the skin and subcutaneous tissue, incision made transversely in the right axilla, carrying dissection down deeply into the axilla through the fascia, into the lymphatic space, encountering a purulent abscess of approximately 3-4 cm. This was cultured and then aspirated and then irrigated. It was manipulated with a digit. At this point, after irrigation, I placed a quarter-inch Ashly drain into the abscess, secured to the skin using 4-0 nylon suture and then the skin was loosely reapproximated using 4-0 nylon suture. Dressing applied and the patient transferred to recovery room in stable condition. I attest to the content of the Intraoperative Record and any orders documented therein. Any exception s are noted below.
[2017-05-21 09:18] VITALS: BP 117/83; PULSE 65; O2SAT 97
--- NOTE | 2017-05-21 09:20 | Anesthesia Progress Nt - [facility] ---
Anesthesia Post Op Note Date & Time May 21, 2017 at 09:20 Vital Signs Pain Intensity: 3.0 Vital Signs Past 12 Hours Date Time Temp Pulse Resp B/P (MAP) Pulse Ox O2 Delivery O2 Flow Rate FiO2 05/21/17 09:18 65 16 117/83 (94) 97 Room Air 05/21/17 08:52 36.4 62 16 100/66 (77) 97 Room Air 05/21/17 08:40 64 19 114/69 96 05/21/17 08:40 63 19 05/21/17 08:40 63 19 05/21/17 08:40 64 19 114/69 96 05/21/17 08:35 61 18 18 08:35 59 18 131/61 97 05/21/17 08:35 61 18 05/21/17 08:35 59 18 131/61 97 05/21/17 08:30 72 23 05/21/17 08:30 70 23 118/65 96 05/21/17 08:30 70 23 118/65 96 05/21/17 08:30 72 23 05/21/17 08:25 68 16 119/75 96 05/21/17 08:25 36.8 73 14 118/65 96 Room Air 05/21/17 08:25 68 16 119/75 96 05/21/17 08:25 68 16 05/21/17 08:25 68 16 05/21/17 08:20 69 18 109/70 94 05/21/17 08:20 68 18 05/21/17 08:20 69 18 109/70 94 05/21/17 08:20 68 18 05/21/17 08:15 69 10 1817 08:15 66 10 116/71 97 18/17 08:15 69 10 18/17 08:15 66 10 116/71 97 18/17 08:10 67 7 123/60 97 18/17 08:10 66 7 18/17 08:10 66 7 18/17 08:10 67 7 123/60 97 18/17 08:05 67 11 18/17 08:05 67 11 18/17 08:05 65 11 94/67 99 18/17 08:05 65 11 94/67 99 18 08:00 67 14 05/21/17 08:00 66 14 90/62 99 05/21/17 08:00 66 14 90/62 99 05/21/17 08:00 67 14 05/21/17 07:55 67 13 05/21/17 07:55 67 13 05/21/17 07:55 67 13 96/63 99 05/21/17 07:55 67 13 96/63 99 05/21/17 07:50 74 12 107/71 99 05/21/17 07:50 76 12 05/21/17 07:50 76 12 05/21/17 07:50 74 12 107/71 99 05/21/17 07:45 73 14 99/63 99 05/21/17 07:45 73 14 05/21/17 07:45 73 14 05/21/17 07:45 73 14 99/63 99 05/21/17 07:45 36.7 74 16 99/65 99 Diffusion Mask 6 05/21/17 06:34 36.5 85 16 124/66 (85) 99 Room Air Notes Mental Status: alert / awake / arousable, participated in evaluation Pt Amnestic to Procedure: Yes Nausea / Vomiting: adequately controlled Pain: adequately controlled Airway Patency, RR, SpO2: stable & adequate BP & HR: stable & adequate Hydration State: stable & adequate Anesthetic Complications: no major complications apparent
== END | disposition home or self-care (01) ==
LOC: X.SURG 06:27
PROVIDERS: ATTEND Surgery
DX: L02.411 Cutaneous abscess of right axilla (principal); J45.909 Unspecified asthma, uncomplicated; F90.9 Attention-deficit hyperactivity disorder, unspecified type; K21.9 Gastro-esophageal reflux disease without esophagitis; E66.9 Obesity, unspecified; Z87.891 Personal history of nicotine dependence; Z90.49 Acquired absence of other specified parts of digestive tract; Z83.3 Family history of diabetes mellitus; Z80.49 Family history of malignant neoplasm of other genital organs